=== PATIENT | female | born 1985 | race Caucasian/White ===

== ENCOUNTER 2022-03-27 05:55 | Emergency (ER) | payer BC ==
[~2022-03-27] VITALS: Ht 162.6 cm; Wt 70.3 kg
[2022-03-27] MEDS ORDERED: TOPROL XL25 M1 PO (06:09)
[2022-03-27] MEDS ORDERED: ZESTRIL10 M1 PO (06:10)
[2022-03-27] MEDS ORDERED: ZOFRAN8 MG PO (11:17)
[2022-03-27] MEDS ORDERED: PEPCID AC20 MG PO (11:17)
[2022-03-27] MEDS ORDERED: LEVSIN0.125 MG PO (11:17)
[2022-03-27] MEDS ORDERED: INTESTINEX680 M1 PO (11:17)
== END 2022-03-27 11:47 | disposition home or self-care (01) ==
LOC: ER 05:55
DX: K52.9 Noninfective gastroenteritis and colitis, unspecified (principal)